=== PATIENT | male | born 1930 | race Caucasian/White ===

== ENCOUNTER 2017-01-11 07:17 | Emergency (ER) | payer MEDICARE, OTHER ==
[~2017-01-11 07:17] MED LIST: ADULT ASPIRIN81 MG; ASPIR 8181 MG PO; ASPIRIN LOW STR81 MG; AVELOX400 MG PO; BENTYL20 MG PO; DIOVAN160 M; DIOVAN80 M1 PO; FISH OIL 1,0001 EA10 PO; FISH OIL 1,2001 CAP; FLOMAX0.4 M1 PO; FLOMAX0.4 MG PO; LOVENOX40 MG/0.4 SQ; MILK OF MA400 MG/5 M PO; PERCOCET 5/3251 TAB PO; PHENERGAN12.5 MG PO; PLAVIX75 MG PO; SENOKOT8.6 MG PO; VITAMIN B6100 MG; VITAMIN B6100 MG PO; VITAMIN C1000 M1 PO; VITAMIN C1000 MG PO; WELCHOL625 M1 PO; WELCHOL625 MG PO; ZETIA10 MG
[2017-01-11 07:54] LABS: HGB-HEMOGLOBIN 10.9 gm/dl (13.5-17.0); MCHC MEAN CORPUSCULAR HGB CONC 31.1 % (32.0-36.0); MCV (MEAN CELL VOLUME) 96.4 fl (82.0-96.0); MEAN PLATELET VOLUME 10.6 cmc (9.4-12.4); NEUTROPHIL-AUTOMATED 3.2 tho/cmm (1.6-8.0); PLATELET COUNT 108 tho/cmm (150-450); RED BLOOD COUNT 3.63 mil/cmm (4.40-5.70)
[2017-01-11 07:58] LABS: WHITE BLOOD COUNT 70.9 tho/cmm (4.0-10.0)
[2017-01-11 08:13] LABS: ANION GAP 13 mmol/L (0-20); BLOOD UREA NITROGEN 21 mg/dl (6-24); CALCIUM 8.9 mg/dl (8.5-10.5); CARBON DIOXIDE-VENOUS 25 mmol/L (22-32); CHLORIDE 109 mmol/l (96-110); CREATININE 1.29 mg/dl (0.60-1.30); GLUCOSE 107 mg/dL (70-110); POTASSIUM 4.5 mmol/L (3.7-5.1); SODIUM 142 mmol/L (135-145); eGFR VALUE FOR BLACK 59 mL/Min
== END 2017-01-11 12:55 ==
LOC: EDMED 07:17
PROVIDERS: Emergency Medicine
DX: R07.9 Chest pain, unspecified (principal); I25.10 Atherosclerotic heart disease of native coronary artery without angina pectoris; I25.2 Old myocardial infarction; I10 Essential (primary) hypertension; E78.5 Hyperlipidemia, unspecified; Z85.46 Personal history of malignant neoplasm of prostate; Z85.6 Personal history of leukemia; Z79.82 Long term (current) use of aspirin; Z79.899 Other long term (current) drug therapy; Z95.1 Presence of aortocoronary bypass graft